=== PATIENT | male | born 1965 | race Caucasian/White ===

== ENCOUNTER 2019-01-31 12:21 | Emergency (ER) | payer MEDICAID, OTHER ==
--- NOTE | 2019-01-31 12:37 | C.PDOC ---
History Of Present Illness 53 y/o male presents to the ER c/o slip and fall down the stairs this morning and injured the left side of his back. Pt rates the pain as a 9/10 and describes it as sharp and only limited to the lower back and worse with movement. Pt denies any head injury, LOC, headache, dizziness, nausea, vomiting, weakness and numbness. Time Seen by Provider: 01/31/19 12:31 Chief Complaint (Nursing): Back Pain History Per: Patient History/Exam Limitations: no limitations Onset/Duration Of Symptoms: Hrs Current Symptoms Are (Timing): Still Present Quality Of Discomfort: Sharp Pain Scale Rating Of: 9 Past Medical History Reviewed: Historical Data, Nursing Documentation, Vital Signs - [facility] Procedures APPLICATION OF SPLINT (01/04/15) Family History: States: Unknown Family Hx - Social History Hx Tobacco Use: No Hx Alcohol Use: No Hx Substance Use: No - Immunization History Hx Tetanus Toxoid Vaccination: No Hx Influenza Vaccination: Yes Hx Pneumococcal Vaccination: No Review Of Systems Constitutional: Negative for: Other (head injury ) Musculoskeletal: Positive for: Back Pain (left side ) Neurological: Negative for: Weakness, Numbness, Other (LOC) Physical Exam - Physical Exam Appears: Non-toxic, No Acute Distress Skin: Warm, Dry Head: Atraumatic, Normacephalic, No Tenderness, No Swelling, No Abrasion, No Laceration Eye(s): bilateral: EOMI Nose: Normal Oral Mucosa: Moist Throat: Normal Neck: Normal ROM, Trachea Midline, Supple Cardiovascular: Rhythm Regular Respiratory: Normal Breath Sounds, No Accessory Muscle Use Back: No CVA Tenderness, No Vertebral Tenderness, Paraspinal Tenderness Extremity: Normal ROM (x4) Neurological/Psych: Oriented x3, Normal Speech, Normal Cognition, Normal Motor, Normal Sensation ED Course And Treatment - Other Rad Lumbar spine X-Ray: Read By Radiologist Interpretation: Accession No. : [id number]. Patient Name / ID : ALEX TAO / [id number]. Exam Date : 01/31/2019 12:50:28 ( Approved ). Study Comment : Sex / Age : M / 53Y. Creator : Clement Brown MD. Dictator : Clement Brown MD. Padded Box Sewer : Methods Analyst Data Processing : Clement Brown MD. Approver2 : Report Date : 01/31/2019 13:31:21. My Comment : . Lumbar spine three views. HISTORY: Fall. COMPARISON: None available. Findings: Prominent disc space narrowing at the L1-2 level with endplate sclerosis and anterior osteophytosis. Impression: Degenerative changes. If pain persists, consider correlation with MRI. Medical Decision Making Medical Decision Making: plans: -- LS spine XR -Degenerative changes -- Toradol given d/w patient results Patient advised to start Naproxen twice a day as needed for pain Start Lidoderm patches to the affected area daily Rest and Ice area Follow up with collection specialist- you may need MRI for further evaluation Patient verbalizes understanding and is in agreement with plan. Patient is stable for discharge. Disposition Counseled Patient/Family Regarding: Studies Performed, Diagnosis, Need For Followup, Rx Given - Disposition Referrals: Thais Wisdom MD [Staff Provider] - Disposition: HOME/ ROUTINE Disposition Time: 13:49 Condition: STABLE Additional Instructions: Start Naproxen twice a day as needed for pain Start Lidoderm patches to the affected area daily Rest and Ice area Follow up with collection specialist- you may need MRI for further evaluation Return to the ED if symptoms worsen Prescriptions: Lidocaine 5% [Lidoderm] 1 ea TD DAILY PRN #30 patch PRN Reason: Pain, Moderate (4-7) Naproxen [Naprosyn] 500 mg PO BID #30 tablet Instructions: Lumbar Muscle Strain (DC), Do I Need an X-ray (or Other Test) for Low Back Pain? Forms: [employer] (Polish), Work Excuse Print Language: MACEDONIAN - Clinical Impression Clinical Impression: Low back pain, Lumbar sprain - Scribe Statement Diehl Do All medical record entries made by the Scribe were at my direction and personally dictated by me. I have reviewed the chart and agree that the record accurately reflects my personal performance of the history, physical exam, medical decision making, and the department course for this patient. I have also personally directed, reviewed, and agree with the discharge instructions and disposition.
--- NOTE | 2019-01-31 13:34 | RAD ---
Lumbar spine three views HISTORY: Fall. COMPARISON: None available. Findings: Prominent disc space narrowing at the L1-2 level with endplate sclerosis and anterior osteophytosis. Impression: Degenerative changes. If pain persists, consider correlation with MRI.
[2019-01-31 14:08] VITALS: BP 125/85; PULSE 78; RESP 16; TEMP 98.1; O2SAT 98
== END 2019-01-31 14:08 | disposition home or self-care (01) ==
LOC: C.ER 12:21
DX: S33.5XXA Sprain of ligaments of lumbar spine, initial encounter (principal); W10.9XXA Fall (on) (from) unspecified stairs and steps, initial encounter; M54.5 Low back pain